=== PATIENT | female | born 2000 ===

== ENCOUNTER 2020-01-02 08:37 | Emergency (ER) | payer SELFPAY ==
[2020-01-02] MEDS ORDERED: ACETAMINOPHEN500 MG PO (10:51)
[2020-01-02 11:14] LABS: Source, Urine Voided
[2020-01-02 11:18] LABS: Bilirubin, Urine Neg (Neg); Blood, Urine 1+ (Neg); Glucose Qualitative, Urine Neg (Neg); Ketones, Urine 2+ (Neg); Leukocyte Esterase, Urine 3+ (Neg); Nitrite, Urine Pos (Neg); Protein, Urine 2+ (Neg); Specific Gravity, Urine 1.025 (1.003-1.022); Urobilinogen, Urine 1+ (Normal)
[2020-01-02 11:48] LABS: Appearance, Urine Cloudy (Clear); Color, Urine Yellow (P-Yellow); Urine Culture Indicated Yes (No)
[2020-01-02 11:49] LABS: Bacteria Many /hpf; Squamous Epithelial Cells Mod /hpf (Few); White Blood Cells, Urine TNTC /hpf (0-5)
== END 2020-01-02 11:45 | disposition home or self-care (01) ==
PROVIDERS: Emergency Medicine
DX: S00.83XA Contusion of other part of head, initial encounter (principal); V49.9XXA Car occupant (driver) (passenger) injured in unspecified traffic accident, initial encounter